=== PATIENT | female | born 1950 | race Caucasian/White ===

== ENCOUNTER 2017-10-19 14:35 | Emergency (ER) | payer BC, OTHER ==
--- NOTE | 2017-10-19 15:47 | EDPHY ---
H & P Stated Complaint: sinus pressure starting yesterday Source: Patient Exam Limitations: No limitations - Personal History Current Tetanus/Diphtheria Vaccine: Yes Current Tetanus Diphtheria and Acellular Pertussis (TDAP): Yes Tetanus Vaccine Date: < 10 years - Medical/Surgical History Hx Asthma: No Hx Chronic Respiratory Disease: No Hx Diabetes: No Hx Cardiac Disease: No Hx Renal Disease: No Hx Cirrhosis: No Hx Alcoholism: No Hx HIV/AIDS: No Hx Splenectomy or Spleen Trauma: No Other PMH: DENIES PMH - Social History Smoking Status: Current every day smoker Time Seen by Provider: 10/19/17 15:46 HPI/ROS: HPI: This is a 67-year-old female who presents with Chief Complaint: Sinus infection Location: Sinus Quality: Infection Duration: 9 days Signs and Symptoms: no fever, no nausea, no vomiting, no photophobia, no noise sensitivity, no neck stiffness, + right ear pain, no tinnitus, + nasal congestion, + sinus pressure, no weakness, no radiation, no aura Timing: Worsening Severity: Moderate Context: Patient is generally healthy, tobacco user, presents with 9 day history of nasal congestion, green nasal discharge, frontal and maxillary sinus pressure and pain has been worsening over the last 9 days. She reports that overall several years she does developed a sinus infection that is resistant [id number] antihistamines for which he has been taking Claritin daily without symptom relief. She is also using saline nasal spray without any relief. She has no drug allergies. Modifying Factors: See above Comment: ROS: see HPI Constitutional: No fever, no chills, no weight loss Eyes: No blurred vision Respiratory: No shortness of breath, no cough Cardiovascular: No chest pain, no palpitations Gastrointestinal: No nausea, no vomiting, no diarrhea, no hematemesis, no blood in stool Genitourinary: No dysuria, no blood in urine Extremities: No myalgias, no edema Neurologic: No weakness, no numbness Skin: No rashes, no petechiae Hematologic: No bruising, no bleeding MEDICAL/SURGICAL/SOCIAL HISTORY: Medical history: Generally healthy. Does not take any regular medications. Surgical history: Denies Social history: Retired. CONSTITUTIONAL: Polite and cooperative, elderly white female, awake and alert, no obvious distress HEENT: Atraumatic and normocephalic, PERRL, EOMI. Tympanic membranes clear. Oropharynx clear, very poor dentition with moderate halitosis, no exudate and moist pink mucosa. Nares show green discharge: Moderate mucosal edema; frontal and maxillary reproducible sinus tenderness; bilateral suborbital darkening consistent with shiners. Airway patent. No lymphadenopathy. No meningismus. Cardiovascular: Normal S1/S2, regular rate, regular rhythm, without murmur rub or gallop. PULMONARY/CHEST: Symmetrical and nontender. Clear to auscultation bilaterally. Good air movement. No accessory muscle usage. ABDOMEN: Soft, nondistended, nontender, no rebound, no guarding, no peritoneal signs, no masses or organomegaly. No CVAT. EXTREMITIES: 2/2 pulses, strength 5/5, no deformities, no clubbing, no cyanosis or edema. NEUROLOGICAL: no focal neuro deficits. GCS 15. SKIN: Warm and dry, no erythema. no rash. Good capillary refill. (Serenity Whitten) Constitutional: Initial Vital Signs Temperature (C) 36.4 C 10/19/17 14:38 Heart Rate 98 10/19/17 14:38 Respiratory Rate 20 10/19/17 14:38 Blood Pressure 135/76 H 10/19/17 14:38 O2 Sat (%) 94 10/19/17 14:38 O2 Delivery Mode Room Air Allergies/Adverse Reactions: aspirin Allergy (Verified 10/19/17 14:37) Sulfa (Sulfonamide Antibiotics) [Sulfa(Sulfonamide Antibiotics)] Allergy ( Verified 10/19/17 14:37) Home Medications: Medication Instructions Recorded Amoxicillin/Clavulanate Pot 875 mg PO BID #20 tab 10/19/17 [Augmentin 875 MG TAB (*)] Fluticasone Nasal [Flonase Nasal 2 sprays NASAL DAILY #1 mdi 10/19/17 [facility] (RX)] Medical Decision Making ED Course/Re-evaluation: Symptoms 10 days; treat with antibiotics combined with nasal steroid spray Vital signs reviewed and no systemic signs. This patient was seen under the supervision of my secondary supervising physician. I evaluated care for this patient independently. (Serenity Whitten) The patient was evaluated and managed by the physician habilitation assistant. I have reviewed this chart and I agree with the findings and plan of care as documented , as indicated by my signature. I am the secondary supervising physician. ( Connie Alexis) Differential Diagnosis: Differential diagnosis includes but is not limited to upper respiratory infection, sinusitis, otitis media, allergic rhinitis. (Serenity Whitten) Departure - Departure Disposition: Home, Routine, Self-Care Clinical Impression: Acute frontal sinusitis Qualifiers: Recurrence: non-recurrent Qualified Code(s): J01.10 - Acute frontal sinusitis, unspecified Maxillary sinusitis, acute Qualifiers: Recurrence: non-recurrent Qualified Code(s): J01.00 - Acute maxillary sinusitis , unspecified Condition: Good Instructions: Sinusitis (ED) Additional Instructions: Take Augmentin twice a day x 10 days. Use nasal steroid sprays at least for 3 days. Referrals: [facility],. [Clinic] - As per Instructions Prescriptions: Amoxicillin/Clavulanate Pot [Augmentin 875 MG TAB (*)] 875 mg PO BID #20 tab Fluticasone Nasal [Flonase Nasal [place] (RX)] 2 sprays NASAL DAILY #1 mdi
[2017-10-19 16:07] VITALS: BP 128/75
== END 2017-10-19 16:10 | disposition home or self-care (01) ==
DX: J01.10 Acute frontal sinusitis, unspecified (principal); J01.00 Acute maxillary sinusitis, unspecified; F17.200 Nicotine dependence, unspecified, uncomplicated